=== PATIENT | female | born 1965 | race Caucasian/White ===

== ENCOUNTER 2020-04-14 06:53 | Observation (INO) | payer OTHER ==
[~2020-04-14] VITALS: Ht 162.6 cm; Wt 49.0 kg
[~2020-04-14 06:53] MED LIST: AUGMENTIN 500-1 EACH PO; CELEXA; CELEXA 20 MG TA20 MG PO; TIROSINT100 MCG; TIROSINT100 MCG PO; VICODIN 5-5001 EACH PO; XANAX 0.5 MG0.5 M1 PO; XANAX 0.5 MG0.5 MG PO
[2020-04-14 06:57] VITALS: BP 122/83
[2020-04-14 07:19] LABS: ABSOLUTE EOSINOPHILS 0.1 thou/uL (0.0-0.7); ABSOLUTE MONOCYTES 0.5 thou/uL (0.0-1.2); BASOPHILS 0.2 %; EOSINOPHILS 2.4 %; HEMATOCRIT 40.8 % (37.0-47.0); HEMOGLOBIN 14.2 gm/dL (12.0-15.0); LYMPHOCYTES 43.6 %; MCH 33.8 pg (26.0-34.0); MCHC 34.7 g/dL (28.0-37.0); MCV 97.2 fL (80.0-100.0); MONOCYTES 10.1 %; MPV 7.2 fl. (7.2-11.1); NUCLEATED RBCS 0 /100WBC; PLATELET COUNT* 328 thou/uL (150-400); POLYS 43.7 %; RDW-CV 13.9 % (10.5-14.5); WBC 4.7 thou/uL (4.0-11.0)
[2020-04-14 07:22] LABS: CALCIUM 8.9 mg/dL (8.5-10.1); CREATININE 0.7 mg/dL (0.6-1.3); POTASSIUM 3.3 mmol/L (3.5-5.1)
[2020-04-14 07:32] LABS: ALBUMIN 4.1 g/dL (3.4-5.0); TOTAL BILIRUBIN 0.4 mg/dL (<0.1-1.0); TOTAL PROTEIN 7.4 g/dL (6.4-8.2)
--- NOTE | 2020-04-14 07:57 | NUR ---
PT.'S EMPLOYER NOTIFIED OF PT NOT BEING ABLE TO COME INTO WORK PER PT REQUEST.
[2020-04-14 09:48] VITALS: BP 135/87
[2020-04-14 10:42] LABS: CHOLESTEROL 228 mg/dL (<200); HDL CHOLESTEROL 70 mg/dL (>40); LDL CHOLESTEROL 129 mg/dL (<100); SERUM ASSESSMENT Clear; TC:HDL 3.3 Ratio (Not establshd); TRIGLYCERIDE 147 mg/dL (<150); VLDL 29 mg/dL (<40)
[2020-04-14] MEDS ORDERED: LEVO-T100 MCG PO (11:14)
[2020-04-14] MEDS ORDERED: EUTHYROX112 MCG PO (11:16)
[2020-04-14 12:42] VITALS: BP 118/62
--- NOTE | 2020-04-14 13:11 | EKG ---
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 04/14/20 1311 0657 0657 Vincent Pritchard MD, [facility] /EPI
--- NOTE | 2020-04-14 15:33 | 2DMMODE ---
[place] [address] 2 D/M-MODE ECHOCARDIOGRAM Name: GER ALONZO Shelby Room: [address] MJoeyRJoey#: [id number] Admission: 04/14/20 Attend Phys: Gm Maria Discharge: Date of : 67 Date of Service: 04/14/20 1533 Report #: [id number] THIS REPORT FOR: cc: Long Richardson James E DO Holkins,Vincent Sky MD [facility] ~ APPROVED REPORT Study performed: 04/14/2020 14:49:58 EXAM: Comprehensive 2D, Doppler, and color-flow Echocardiogram Patient Location: In-Patient Room #: [facility] Status: routine BSA: 1.51 HR: 89 bpm BP: 118/62 mmHg Rhythm: NSR Other Information Study Quality: Good Indications elevated bnp 2D Dimensions IVSd: 10.15 (7-11mm) LVOT Diam: 21.85 (18-24mm) LVDd: 50.91 mm PWd: 10.06 (7-11mm) Ascending Ao: 28.66 (22-36mm) LVDs: 43.60 (25-40mm) Aortic Root: 33.44 mm Volumes Left Atrial Volume (Systole) LA ESV Index: 26.60 mL/m2 Aortic Valve AoV Peak Cesario.: 0.92 m/s AO Peak Gr.: 3.36 mmHg LVOT Max P.41 mmHg AO Mean Gr.: 2.06 mmHg LVOT Mean P.73 mmHg LVOT Max V: 0.59 m/s AO V2 VTI: 17.04 cm LVOT Mean V: 0.41 m/s ASHLEY (VTI): 2.30 cm2 LVOT V1 VTI: 10.45 [place] [address] 2 D/M-MODE ECHOCARDIOGRAM Name: GER ALONZO Room: [address] AsyaRJoey#: [id number] Admission: 04/14/20 Attend Phys: Gm Maria Discharge: Date of : 67 Date of Service: 04/14/20 1533 Report #: [id number] Mitral Valve E/A Ratio: 0.67 MV Decel. Time: 308.72 ms MV E Max Cesario.: 0.46 m/s MV PHT: 89.53 ms MVA (PHT): 2.46 cm2 TDI E/Lateral E': 9.20 E/Medial E': 7.67 Medial E' Cesario.: 0.06 m/s Lateral E' Cesario.: 0.05 m/s Pulmonary Valve PV Peak Cesario.: 0.67 m/s PV Peak Gr.: 1.77 mmHg Left Ventricle The left ventricle is normal size. There is moderate global hypokinesis of left ventricular wall motion. There is normal left ventricular wall thickness. Left ventricular systolic function is moderately decreased. LVEF is 35-40%. Grade I - abnormal relaxation pattern. Right Ventricle The right ventricle is normal size. The right ventricular systolic function is normal. Atria Left atrium is mildly dilated. The right atrium size is normal. Aortic Valve The aortic valve is normal in structure. No aortic regurgitation is present. There is no aortic valvular stenosis. Mitral Valve The mitral valve is normal in structure. Trace mitral regurgitation. No evidence of mitral valve stenosis. Tricuspid Valve The tricuspid valve is normal in structure. Unable to assess PA pressure. Trace tricuspid regurgitation. Pulmonic Valve The pulmonary valve is normal in structure. There is no pulmon[place] [address] 2 D/M-MODE ECHOCARDIOGRAM Name: GER ALONZO Room: [address]#: [id number] Admission: 04/14/20 Attend Phys: Gm Maria Discharge: Date of : 67 Date of Service: 04/14/20 1533 Report #: [id number] Great Vessels The aortic root is normal in size. IVC is normal in size and collapses >50% with inspiration. Pericardium There is no pericardial effusion. <Conclusion> The left ventricle is normal size. There is normal left ventricular wall thickness. Left ventricular systolic function is moderately decreased. LVEF is 35-40%. Grade I - abnormal relaxation pattern. The right ventricle is normal size. Left atrium is mildly dilated. The right atrium size is normal. The aortic valve is normal in structure. The mitral valve is normal in structure. Trace mitral regurgitation. The tricuspid valve is normal in structure. IVC is normal in size and collapses >50% with inspiration. There is moderate global hypokinesis of left ventricular wall motion. There is no pericardial effusion. <ELECTRONICALLY SIGNED> By: Vincent Pritchard MD, [facility] 04/14/20 1533 1533 1533 Vincent Pritchard MD, FACC /INF
--- NOTE | 2020-04-14 16:00 | NUR ---
PT UP FROM ED AROUND 1030 ALERT AND ORIENTED BUT VERY ANXIOUS HRR ON MONITOR NSR IN 80S MEDS PUT IN COMPUTER NPO JUST GOT BACK FROM STRESS TEST PT RECEIVED XANX AROUND 1230 TODAY NO PAIN AT THIS TIME REC'D NITRO IN ED WITH RELIEF RAC 20G SALINE LOCKED UP AD PARVIN NO COMPLAINTS AT THIS TIME JUST WANTS TO EAT
[2020-04-14 16:39] VITALS: BP 113/76
--- NOTE | 2020-04-14 17:09 | CARDNUC ---
[place] [address] CARDIAC NUCLEAR IMAGING REPORT Name: GER ALONZO Room: [address] M.R.#: [id number] Admission: 04/14/20 Attend Phys: Gm Maria Discharge: Date of : 67 Date of Service: 04/14/20 1708 Report #: [id number] THIS REPORT FOR: cc: Long Richardson James E DO Liston, Michael J. MD [facility] ~ APPROVED REPORT Study performed: 04/14/2020 14:51:51 Exam: Nuclear Stress Test Indication: Chest pain Patient Location: In-Patient Room #: [facility] Stress Tech: Elisha Montaño Stress Nurse: Jeimy Grover RN Ht: 5 ft 4 in Wt: 108 lbs BSA: 1.51 m2 BMI: 18.53 Medical History Medical History: Hyperlipidemia, Smoking Medications: asa-325 Allergies: No known drug allergies Cardiac Risk Factors: Age, Current Smoker, Hyperlipidemia Exercise History: Indeterminate Stress Test Details Stress Test: Exercise stress testing was performed using a Chandler protocol. HR Resting HR: 72 bpm Max Heart Rate (APMHR): 167 bpm Max HR Achieved: 150 bpm Target HR (85% APMHR): 141 bpm % of APMHR: 89 Recovery HR: 98 bpm HR response to stress: Normal HR response to stress BP Resting BP: 99/75 mmHg Max BP: 192/98 mmHg BP response to stress: Normal blood pressure response to stress. ECG [address] [address] CARDIAC NUCLEAR IMAGING REPORT Name: GER ALONZO Shelby Room: [address] Carol Denise#: [id number] Admission: 04/14/20 Attend Phys: Gm Maria Discharge: Date of : 67 Date of Service: 04/14/20 1708 Report #: [id number] Resting ECG: Sinus Rhythm Stress ECG: Sinus Tachycardia ST Change: None Arrhythmia: None Recovery ECG: Sinus Rhythm Recovery ST Change: None Recovery Arrhythmia: None Clinical Reason for Termination: Maximal effort, ST changes, Chest pain/Anginal equivalent Exercise duration: 7 min 01 sec Exercise capacity: 8.64 METs Overall Exercise Capacity for Age: Normal Functional Aerobic Impairment 90% The patient had persistent chest pain throughout the stress test. Nurse Comments pt co increase of pain to 6/10 during test. resolved with rest Stress ECG Conclusion The baseline twelve-lead EKG shows sinus rhythm with some nonspecific T wave inversion without significant ST segment abnormality. EKGs obtained during and post exercise show sinus rhythm and sinus tachycardia with no significant ST segment changes when compared to baseline. There were no stress-induced arrhythmias. NM EXAM: Myocardial Perfusion REST/STRESS Resting Data Rest SPECT myocardial perfusion imaging was performed in supine position 30 minutes following the intravenous injection of 10.3 mCi of Tc-99m Sestamibi. Time of rest injection: 13:30 The images were gated to evaluate regional wall motion and calculate left ventricular ejection fraction. Administration Route: IV Administration Site: Right Arm Exercise Stress At peak stress, the patient was injected intravenously with 36.0mCi of Tc-99m Sestamibi. Time of stress injection: 14:50 Administration Route: [place] [address] CARDIAC NUCLEAR IMAGING REPORT Name: CHERIGER Ryan Room: [address] M.R.#: [id number] Admission: 04/14/20 Attend Phys: Gm Maria Discharge: Date of : 67 Date of Service: 04/14/20 1708 Report #: [id number] Administration Site: Right Arm Heart Rate at time of stress injection: 143 bpm. Patient continued to exercise for 1 minute(s). Gated Stress SPECT was performed 40 minutes after stress injection. The images were gated to evaluate regional wall motion and calculate left ventricular ejection fraction. Prone imaging was performed. Study Quality Study: Good Artifact: No artifact Study Data At rest, the left ventricular ejection fraction was 38%.. Post stress, the left ventricular ejection was 34%.. TID = 1.06. Perfusion Perfusion images obtained at rest and post exercise stress showed no significant defect to suggest infarct or ischemia. Wall Motion There is global hypokinesis without obvious focal wall motion abnormality. Nuclear Conclusion ECG Findings: negative for ischemia Clinical Findings: equivocal Nuclear Findings: negative for ischemia Exercise Capacity: normal Left Ventricular Function: abnormal Perfusion study showed no defect to suggest infarct or ischemia. On gated studies there is global hypokinesis of the left ventricle without obvious focal wall motion abnormality. LV systolic dysfunction appears to be at least moderately decreased. This is not a high risk study with regards to ischemic coronary disease. <Conclusion> The baseline twelve-lead EKG shows sinus rhythm with some nonspecific T wave inversion without significant ST segment abnormality. EKGs obtained during and post exercise show sinus [place] [address] CARDIAC NUCLEAR IMAGING REPORT Name: GER ALONZO Room: [address]#: [id number] Admission: 04/14/20 Attend Phys: Gm Maria Discharge: Date of : 67 Date of Service: 04/14/201707 Report #: [id number] tachycardia with no significant ST segment changes when compared to baseline. There were no stress-induced arrhythmias. <ELECTRONICALLY SIGNED> By: Horace Kunz MD, [facility] 04/14/20 1708 07 1708 Horace Kunz MD, FACC /INF
[2020-04-14 19:20] VITALS: BP 97/63
[2020-04-14 22:11] LABS: AMP/METHAMP POSITIVE (Negative); BARBITURATES Negative (Negative); BENZODIAZEPINES POSITIVE (Negative); COCAINE Negative (Negative); METHADONE Negative (Negative); OPIATES POSITIVE (Negative); PCP Negative (Negative); THC POSITIVE (Negative)
[2020-04-15] VITALS: BP 105/60; BP 114/72
[2020-04-15 04:00] VITALS: BP 108/59
[2020-04-15 05:18] LABS: ABSOLUTE BASOPHILS 0.1 thou/uL (0.0-0.2); ABSOLUTE EOSINOPHILS 0.1 thou/uL (0.0-0.7); ABSOLUTE LYMPHOCYTES 1.9 thou/uL (0.8-5.3); ABSOLUTE MONOCYTES 0.5 thou/uL (0.0-1.2); ABSOLUTE NEUTROPHILS 2.8 thou/uL (1.6-8.1); BASOPHILS 1.3 %; EOSINOPHILS 2.2 %; HEMOGLOBIN 13.2 gm/dL (12.0-15.0); LYMPHOCYTES 34.7 %; MCH 34.1 pg (26.0-34.0); MCHC 34.7 g/dL (28.0-37.0); MCV 98.1 fL (80.0-100.0); MONOCYTES 9.3 %; MPV 7.8 fl. (7.2-11.1); NUCLEATED RBCS 0 /100WBC; PLATELET COUNT* 293 thou/uL (150-400); POLYS 52.5 %; RBC 3.88 mil/uL (4.20-5.00); RDW-CV 13.8 % (10.5-14.5); WBC 5.4 thou/uL (4.0-11.0)
[2020-04-15 05:19] LABS: CALCIUM 8.7 mg/dL (8.5-10.1); CREATININE 0.7 mg/dL (0.6-1.3)
[2020-04-15 05:36] LABS: POTASSIUM 4.3 mmol/L (3.5-5.1)
--- NOTE | 2020-04-15 06:24 | NUR ---
PT AWAKE MOST OF SHIFT. ASSESSMENT DOCUMENTED. MEDS GIVEN PER E-MAR. IV PATENT. ANXIETY AND SLEEP MEDS GIVEN PER E-MAR. PT PACING IN ROOM THORUGH NIGHT. UA OBTAINED. WILL CONTINUE WITH PLAN OF CARE.
[2020-04-15 09:15] VITALS: BP 94/62
[2020-04-15] MEDS ORDERED: LASIX 20 MG TAB20 MG PO (09:53)
[2020-04-15] MEDS ORDERED: ASPIRIN325 PO (09:53)
[2020-04-15] MEDS ORDERED: COZAAR 50 MG TA50 M1 PO (09:53)
[2020-04-15] MEDS ORDERED: NITROGLYCERIN0.4 MG SUBLING (09:53)
[2020-04-15] MEDS ORDERED: CARVEDILOL3.125 MG PO (09:53)
[2020-04-15] MEDS ORDERED: NICOTINE TRANSD14 M1 TRANSDERM (10:36)
[2020-04-15 10:45] VITALS: BP 94/62
--- NOTE | 2020-04-15 11:42 | NUR ---
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
--- NOTE | 2020-04-17 11:03 | EKG ---
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 : 1965 Requested By: Gm Maria Order Number: [id number] MD: Vincent Pritchard Measurements Intervals [place] Rate: 63 P: 68 WI: 159 QRS: 10 QRSD: 99 T: 32 QT: 498 QTc: 510 Interpretive Statements Sinus rhythm Probable left atrial enlargement Nonspecific T abnormalities, anterior leads Borderline prolonged QT interval Compared to ECG 04/14/2020 06:57:55 Possible ischemia no longer present T-wave abnormality still present Electronically Signed On 04-17-2020 11:02:54 CDT by Vincent Pritchard [email or web address] <ELECTRONICALLY SIGNED> By: Vincent Pritchard MD, FAC 04/17/20 1102 0414 0414 Vincent Pritchard MD, FAC /EPI
== END 2020-04-15 11:45 | disposition home or self-care (01) ==
LOC: M.ERS 06:53 → M.TBA-ER 08:03 → M.2W 08:03
PROVIDERS: Emergency Medicine Emergency Medical Services; Registered Nurse; ADMIT Internal Medicine; ATTEND Internal Medicine
DX: I20.0 Unstable angina (principal); E03.9 Hypothyroidism, unspecified; F41.9 Anxiety disorder, unspecified; E05.00 Thyrotoxicosis with diffuse goiter without thyrotoxic crisis or storm; F19.10 Other psychoactive substance abuse, uncomplicated; I11.0 Hypertensive heart disease with heart failure; I50.9 Heart failure, unspecified; E87.6 Hypokalemia; F17.200 Nicotine dependence, unspecified, uncomplicated; J44.9 Chronic obstructive pulmonary disease, unspecified; F17.210 Nicotine dependence, cigarettes, uncomplicated

== ENCOUNTER 2020-04-22 14:16 | Emergency (ER) | payer OTHER ==
[~2020-04-22] VITALS: Ht 170.2 cm; Wt 49.0 kg
[~2020-04-22 14:16] MED LIST changes: +ASPIRIN325 PO; +CARVEDILOL3.125 MG PO; +COZAAR 50 MG TA50 M1 PO; +EUTHYROX112 MCG PO; +LASIX 20 MG TAB20 MG PO; +LEVO-T100 MCG PO; +NICOTINE TRANSD14 M1 TRANSDERM; +NITROGLYCERIN0.4 MG SUBLING
[2020-04-22 15:27] LABS: URINE BILIRUBIN NEGATIVE (Negative); URINE BLOOD NEGATIVE (Negative); URINE CLARITY CLEAR; URINE COLOR YELLOW; URINE GLUCOSE-RANDOM NEGATIVE (Negative); URINE KETONES NEGATIVE (Negative); URINE LEUKOCYTES-REFLEX NEGATIVE (Negative); URINE NITRITE-REFLEX NEGATIVE (Negative); URINE PROTEIN NEGATIVE (Negative); URINE UROBILINOGEN 0.2 E.U./dl (0.2-1.0)
[2020-04-22 15:33] LABS: AMP/METHAMP Negative (Negative); BARBITURATES Negative (Negative); BENZODIAZEPINES POSITIVE (Negative); COCAINE Negative (Negative); METHADONE Negative (Negative); OPIATES Negative (Negative); PCP Negative (Negative); THC POSITIVE (Negative)
[2020-04-22 15:42] LABS: ABSOLUTE BASOPHILS 0.1 thou/uL (0.0-0.2); ABSOLUTE EOSINOPHILS 0.1 thou/uL (0.0-0.7); ABSOLUTE LYMPHOCYTES 1.7 thou/uL (0.8-5.3); ABSOLUTE MONOCYTES 0.6 thou/uL (0.0-1.2); ABSOLUTE NEUTROPHILS 2.8 thou/uL (1.6-8.1); BASOPHILS 1.5 %; EOSINOPHILS 1.8 %; HEMATOCRIT 38.7 % (37.0-47.0); HEMOGLOBIN 13.4 gm/dL (12.0-15.0); LYMPHOCYTES 32.9 %; MCH 33.3 pg (26.0-34.0); MCHC 34.6 g/dL (28.0-37.0); MCV 96.3 fL (80.0-100.0); MPV 7.4 fl. (7.2-11.1); NUCLEATED RBCS 0 /100WBC; PLATELET COUNT* 310 thou/uL (150-400); POLYS 52.8 %; RBC 4.02 mil/uL (4.20-5.00); RDW-CV 13.7 % (10.5-14.5); WBC 5.2 thou/uL (4.0-11.0)
[2020-04-22 15:52] LABS: INR 1.1; PROTIME 10.9 Seconds (9.20-11.50)
[2020-04-22 15:53] LABS: CALCIUM 8.4 mg/dL (8.5-10.1); CREATININE 0.8 mg/dL (0.6-1.3); POTASSIUM 3.7 mmol/L (3.5-5.1)
[2020-04-22 16:03] LABS: ALBUMIN 3.8 g/dL (3.4-5.0); TOTAL BILIRUBIN 0.2 mg/dL (<0.1-1.0); TOTAL PROTEIN 6.9 g/dL (6.4-8.2)
[2020-04-22] MEDS ORDERED: PROAIR HFA8.5 GM INH (17:53)
[2020-04-22] MEDS ORDERED: MEDROLDOSEPACK PO (17:53)
[2020-04-22 18:01] VITALS: BP 91/56
--- NOTE | 2020-04-23 12:54 | EKG ---
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[facility] : 1965 Requested By: Lilia Law Order Number: [id number] MD: Horace Kunz Measurements Intervals [place] Rate: 84 P: 73 ID: 144 QRS: 22 QRSD: 92 T: 99 QT: 471 QTc: 557 Interpretive Statements Sinus rhythm Multiple ventricular premature complexes Abnrm T, consider ischemia, anterolateral lds Prolonged QT interval Baseline wander in lead(s) II,III,aVF Compared to ECG 04/15/2020 04:14:39 Ventricular premature complex(es) now present Possible ischemia now present T-wave abnormality no longer present Electronically Signed On 04-23-2020 12:54:19 CDT by Horace Kunz [email or web address] <ELECTRONICALLY SIGNED> By: Horace Kunz MD, FAC 04/23/20 1254 1420 1420 Horace Kunz MD, [facility] /EPI
== END 2020-04-22 18:02 | disposition home or self-care (01) ==
LOC: M.ERS 14:16
PROVIDERS: Personal Emergency Response Attendant
DX: I50.9 Heart failure, unspecified (principal); R06.00 Dyspnea, unspecified; E03.9 Hypothyroidism, unspecified; F41.9 Anxiety disorder, unspecified

== ENCOUNTER 2020-04-29 11:56 | Emergency (ER) | payer OTHER ==
[~2020-04-29] VITALS: Ht 160 cm; Wt 46.7 kg
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
[~2020-04-29 11:56] MED LIST changes: +MEDROLDOSEPACK PO; +PROAIR HFA8.5 GM INH
[2020-04-29 12:40] LABS: ABSOLUTE BASOPHILS 0.1 thou/uL (0.0-0.2); ABSOLUTE EOSINOPHILS 0.1 thou/uL (0.0-0.7); ABSOLUTE LYMPHOCYTES 1.3 thou/uL (0.8-5.3); ABSOLUTE MONOCYTES 0.4 thou/uL (0.0-1.2); ABSOLUTE NEUTROPHILS 2.9 thou/uL (1.6-8.1); BASOPHILS 1.2 %; EOSINOPHILS 1.9 %; HEMATOCRIT 38.3 % (37.0-47.0); HEMOGLOBIN 13.5 gm/dL (12.0-15.0); LYMPHOCYTES 27.3 %; MCH 33.7 pg (26.0-34.0); MCHC 35.2 g/dL (28.0-37.0); MCV 95.9 fL (80.0-100.0); MONOCYTES 8.8 %; MPV 7.4 fl. (7.2-11.1); NUCLEATED RBCS 0 /100WBC; PLATELET COUNT* 286 thou/uL (150-400); POLYS 60.8 %; RDW-CV 13.5 % (10.5-14.5); WBC 4.8 thou/uL (4.0-11.0)
[2020-04-29 12:52] LABS: CALCIUM 8.4 mg/dL (8.5-10.1); CREATININE 0.6 mg/dL (0.6-1.3); POTASSIUM 3.3 mmol/L (3.5-5.1)
[2020-04-29 13:02] LABS: ALBUMIN 3.5 g/dL (3.4-5.0); MAGNESIUM 1.9 mg/dL (1.8-2.4); TOTAL BILIRUBIN 0.3 mg/dL (<0.1-1.0); TOTAL PROTEIN 6.5 g/dL (6.4-8.2)
[2020-04-29] MEDS ORDERED: NORCO 5-325 TA1 EAC2 PO (13:23)
[2020-04-29] MEDS ORDERED: XANAX 0.5 MG0.5 M1 PO (13:40)
[2020-04-29 13:42] VITALS: BP 97/59
--- NOTE | 2020-04-30 14:12 | EKG ---
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 : 1965 Requested By: Dung Munoz Order Number: [id number] MD: Bayron Garcia Measurements Intervals [place] Rate: 55 P: 41 [place]: 145 QRS: 11 QRSD: 102 T: 51 QT: 538 QTc: 515 Interpretive Statements Sinus bradycardia Abnormal T, consider ischemia, anterior leads Prolonged QT interval Baseline wander in lead(s) V5 Compared to ECG 04/22/2020 14:20:48 Ventricular premature complex(es) no longer present Possible ischemia still present Electronically Signed On 04-30-2020 14:12:00 CDT by Bayron Garcia [email or web address] <ELECTRONICALLY SIGNED> By: Bayron Garcia MD, [facility] 04/30/20 1412 1204 1204 Bayron Garcia MD, [facility] /EPI
== END 2020-04-29 13:42 | disposition home or self-care (01) ==
LOC: M.ERS 11:56
PROVIDERS: Emergency Medicine Emergency Medical Services
DX: R07.89 Other chest pain (principal); E03.9 Hypothyroidism, unspecified; F41.9 Anxiety disorder, unspecified

== ENCOUNTER → 2020-05-03 | Outpatient (CLI) | payer OTHER ==
[~2020-05-03] VITALS: Ht 170.2 cm; Wt 52.6 kg
[2020-05-03] VITALS (7 sets, daily range): BP systolic 104–130; BP diastolic 63–82
[~2020-05-03] MED LIST changes: +NORCO 5-325 TA1 EAC2 PO
[2020-05-03 09:41] LABS: HEMATOCRIT 38.5 % (37.0-47.0); HEMOGLOBIN 13.5 gm/dL (12.0-15.0); MCH 33.9 pg (26.0-34.0); MCV 96.9 fL (80.0-100.0); RBC 3.98 mil/uL (4.20-5.00); RDW-CV 13.9 % (10.5-14.5); WBC 6.5 thou/uL (4.0-11.0)
[2020-05-03 09:51] LABS: APTT 26.8 Seconds (25.0-31.3); INR 1.1; PROTIME 11.5 Seconds (9.20-11.50)
[2020-05-03 09:58] LABS: ANION GAP 5 mmol/L (7-16); BUN 15 mg/dL (7-18); CALCIUM 8.9 mg/dL (8.5-10.1); CHLORIDE 100 mmol/L (98-107); CO2 32 mmol/L (21-32); CREATININE 0.6 mg/dL (0.6-1.3); GLUCOSE 86 mg/dL (70-99); POTASSIUM 4.7 mmol/L (3.5-5.1); SODIUM 137 mmol/L (136-145)
[2020-05-03 10:02] LABS: ALBUMIN 3.5 g/dL (3.4-5.0); ALKALINE PHOSPHATASE 79 U/L (46-116); CHOLESTEROL 189 mg/dL (<200); HDL CHOLESTEROL 54 mg/dL (>40); LDL CHOLESTEROL 104 mg/dL (<100); SGOT 31 U/L (15-37); SGPT 13 U/L (30-65); TC:HDL 3.5 Ratio (Not establshd); TOTAL BILIRUBIN 0.2 mg/dL (<0.1-1.0); TOTAL PROTEIN 6.7 g/dL (6.4-8.2); TRIGLYCERIDE 156 mg/dL (<150); VLDL 31 mg/dL (<40)
[2020-05-03 10:04] LABS: SERUM ASSESSMENT Clear
--- NOTE | 2020-05-03 10:30 | EKG ---
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: : 1965 Requested By: Bayron Garcia Order Number: [id number] Reading MD: Bayron Garcia Measurements Intervals [place] Rate: 67 P: 75 [place]: 155 QRS: 22 QRSD: 102 T: 50 QT: 478 QTc: 505 Interpretive Statements Sinus rhythm Nonspecific T abnormalities, anterior leads Borderline prolonged QT interval Compared to ECG 04/29/2020 12:04:07 Sinus bradycardia no longer present T-wave abnormality still present Electronically Signed On 05-03-2020 10:30:33 CDT by Bayron Garcia [email or web address] <ELECTRONICALLY SIGNED> By: Bayron Garcia MD, FAC 05/03/20 1030 1008 1008 Bayron Garcia MD, [facility] /EPI
--- NOTE | 2020-05-03 18:01 | CARD ---
[address] [address] CARDIAC CATH REPORT Name: GER ALONZO Shelby Room: [facility]#: [id number] Admission: 05/03/20 Attend Phys: Bayron Garcia MD, F Discharge: Date of : 67 Report #: [id number] THIS REPORT FOR: //name// cc: Barby Hernandez Angela Jo RNP ~ APPROVED REPORT Study performed: 05/03/2020 08:51:13 Patient Details Patient Status: Out-Patient Room #: The patient is a 55 year-old female Event Personnel Bayron Garcia Senior Treasury Analyst, Edwardo Salmeron RN RN, Long Bo Scrub, Luis Bo Jessie RTR Monitor Procedures Performed Art Access - R radial artery Left Heart Cath w/or w/o Coronaries Hemostasis with Hemoband Indication Cardiomyopathy, Chest pain Risk Factors Hypercholesterolemia, Tobacco History () Admission/Lab Medications/Medications given during procedure Heparin Unfract., Midazolam (Versed) IV 2 mg, Fentanyl IV 25 mcg, Oxygen Nasal cannula 2 l per min, 0.9% Sodium Chloride IV 75 ml per hr, Lidocaine Subcut 5 ml, Midazolam (Versed) IV 1 mg, Nitroglycerin IA 400 mcg, Verapamil IA 5 mg, Heparin IV 2600 units, Midazolam (Versed) IV 0.5 mg Procedure Narrative The patient was brought electively to the Cardiac Catheterization Laboratory and was prepped and draped in a sterile manner. The right wrist was infiltrated with 2% Lidocaine subcutaneous anesthesia. A Slender Glidesheath sheath was inserted into the right radial artery. Coronary angiography was performed using coronary diagnostic catheters. The right coronary system was accessed and visualized with a Diagnostic 6 Fr JR 4 catheter. The left coronary system was accessed and visualized with a Diagnostic 6 Fr JL 4 catheter. The left ventricle was accessed and visualized with a Diagnostic 6 Fr Pigtail catheter. Left ventricular/Aortic [place] [address] CARDIAC CATH REPORT Name: GER ALONZO Room: [facility]#: [id number] Admission: 05/03/20 Attend Phys: Bayron Garcia MD, F Discharge: Date of : 67 Report #: [id number] catheter pullback. Left ventriculogram was performed in CARTER projection. Closure device was deployed with a 6 Fr Vasc-Band Reg 24cm. The patient tolerated the procedure well and there were no complications associated with the procedure. There was no hematoma. Intraoperative Conscious Sedation Sedation start time: 10:38 Case end Time: 10:57 Fentanyl 50 mcg Versed 3.5 mg Fluoro Time: 2.3 minutes Dose: DAP 48633 cGycm2 318 mGy Contrast Type and Amount: Omnipaque 90 ml [place] Artery Percent Stenosis Left Main: 0 % Prox LAD: 0 % Mid/Distal LAD: 0 % Circumflex: 0 % RCA: 0 % Ramus: % Left Ventriculography The left ventricular ejection fraction is estimated to be 25-30%. There is 1+ mitral insufficiency. global hypokinesis noted of the left venricle Hemodynamics The aortic pressure is 101/64 mmHg with a mean of 79 mmHg. The left ventricular pressure is 107/10 mmHg with a mean of mmHg. The left ventricular end diastolic pressure is 10 mmHg. There was no gradient across the aortic valve upon pullback. Pullback from the left ventricle to the aorta revealed no gradient across the aortic valve. Conclusion 1. nonischemic cardiomyopathy 2. LVEF 25-30% Recommendations consider ICD placement <ELECTRONICALLY SIGNED> By: Bayron Garcia MD, FACC 05/03/20 1800 1800 1800Daalexis Garcia MD, FACC /INF
== END ==
LOC: M.CL 08:43
PROVIDERS: ATTEND Internal Medicine Cardiovascular Disease
DX: I42.9 Cardiomyopathy, unspecified (principal); R07.9 Chest pain, unspecified; E03.9 Hypothyroidism, unspecified; F41.9 Anxiety disorder, unspecified; I11.0 Hypertensive heart disease with heart failure; I50.9 Heart failure, unspecified; J44.9 Chronic obstructive pulmonary disease, unspecified; F17.210 Nicotine dependence, cigarettes, uncomplicated; Z79.82 Long term (current) use of aspirin; Z79.899 Other long term (current) drug therapy; Z98.890 Other specified postprocedural states

== ENCOUNTER → 2020-08-31 | Outpatient (CLI) | payer OTHER ==
[2020-08-31 12:51] LABS: CALCIUM 8.5 mg/dL (8.5-10.1); CREATININE 0.6 mg/dL (0.6-1.3); POTASSIUM 3.5 mmol/L (3.5-5.1)
== END ==
LOC: M.LAB 12:10
PROVIDERS: ATTEND Internal Medicine Cardiovascular Disease
DX: I42.0 Dilated cardiomyopathy (principal)

== ENCOUNTER → 2020-09-27 | Outpatient (CLI) | payer OTHER | LOC: M.CT 10:36 | PROVIDERS: ATTEND Nurse Practitioner Family | DX: R10.10 Upper abdominal pain, unspecified (principal) ==

== ENCOUNTER 2020-10-01 06:36 | Emergency (ER) | payer OTHER ==
[~2020-10-01] VITALS: Ht 170.2 cm; Wt 52.6 kg
[2020-10-01 07:53] LABS: ABSOLUTE BASOPHILS 0.1 thou/uL (0.0-0.2); ABSOLUTE EOSINOPHILS 0.1 thou/uL (0.0-0.7); ABSOLUTE LYMPHOCYTES 2.1 thou/uL (0.8-5.3); ABSOLUTE MONOCYTES 0.7 thou/uL (0.0-1.2); ABSOLUTE NEUTROPHILS 2.4 thou/uL (1.6-8.1); BASOPHILS 2.2 %; EOSINOPHILS 2.7 %; HEMATOCRIT 39.3 % (37.0-47.0); HEMOGLOBIN 13.5 gm/dL (12.0-15.0); LYMPHOCYTES 37.7 %; MCH 34.3 pg (26.0-34.0); MCHC 34.3 g/dL (28.0-37.0); MCV 100.1 fL (80.0-100.0); MONOCYTES 13.3 %; MPV 7.4 fl. (7.2-11.1); NUCLEATED RBCS 0 /100WBC; PLATELET COUNT* 361 thou/uL (150-400); POLYS 44.1 %; RBC 3.93 mil/uL (4.20-5.00); WBC 5.5 thou/uL (4.0-11.0)
[2020-10-01 08:00] LABS: CALCIUM 8.2 mg/dL (8.5-10.1); CREATININE 0.9 mg/dL (0.6-1.3); POTASSIUM 4.6 mmol/L (3.5-5.1)
[2020-10-01 08:04] LABS: ALBUMIN 3.1 g/dL (3.4-5.0); TOTAL BILIRUBIN 0.1 mg/dL (<0.1-1.0)
[2020-10-01 10:33] VITALS: BP 1112/73
--- NOTE | 2020-10-02 10:08 | EKG ---
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 : 1965 Requested By: Caesar Hay Order Number: [id number] MD: Vincent Pritchard Measurements Intervals [place] Rate: 72 P: 72 NV: 154 QRS: 39 QRSD: 145 T: 231 QT: 469 QTc: 514 Interpretive Statements Sinus rhythm Nonspecific intraventricular conduction delay Anteroseptal infarct, age indeterminate possible Repol abnrm, prob ischemia, anterolateral lds Compared to ECG 05/03/2020 10:08:00 Intraventricular conduction delay now present Myocardial infarct finding now suggested Early repolarization now present Possible ischemia now present Electronically Signed On 10-02-2020 10:07:49 ON AIR PERSONALITY by Vincent Pritchard [email or web address] <ELECTRONICALLY SIGNED> By: Vincent Pritchard MD, FACC 10/02/20 1007 0744 Vincent Pritchard MD, [facility] /EPI
== END 2020-10-01 10:34 | disposition home or self-care (01) ==
LOC: M.ERS 06:36
PROVIDERS: Emergency Medicine
DX: R10.84 Generalized abdominal pain (principal); R11.2 Nausea with vomiting, unspecified; J18.9 Pneumonia, unspecified organism; E03.9 Hypothyroidism, unspecified; Z79.899 Other long term (current) drug therapy; Z20.828 Contact with and (suspected) exposure to other viral communicable diseases

== ENCOUNTER → 2020-10-03 | Outpatient (CLI) | payer OTHER ==
--- NOTE | 2020-10-03 12:41 | 2DMMODE ---
[place] [address] 2 D/M-MODE ECHOCARDIOGRAM Name: GER ALONZO Room: [facility]#: [id number] Admission: 10/03/20 Attend Phys: Bayron Garcia MD Discharge: Date of : 67 Date of Service: 10/03/20 1241 Report #: [id number] THIS REPORT FOR: cc: Barby Hernandez Angela Jo RNP Liston, Michael J. MD [facility] ~ APPROVED REPORT Study performed: 10/03/2020 08:59:32 EXAM: Limited 2D Echocardiogram Patient Location: Out-Patient BSA: 1.60 HR: 65 bpm BP: 118/62 mmHg Other Information Study Quality: Good Indications Cardiomyopathy 2D Dimensions IVSd: 10.52 (7-11mm) LVDd: 49.67 mm PWd: 8.12 (7-11mm) LVDs: 40.17 (25-40mm) Aortic Root: 30.15 mm Left Ventricle The left ventricle is normal size. There is global left ventricular hypokinesis. There is normal left ventricular wall thickness. Left ventricular ejection fraction is moderately decreased. LVEF is 35-40%. Aortic Valve The aortic valve is normal in structure. Mitral Valve The mitral valve is normal in structure. Tricuspid Valve The tricuspid valve [place] [address] 2 D/M-MODE ECHOCARDIOGRAM Name: GER ALONZO Room: [facility]#: [id number] Admission: 10/03/20 Attend Phys: Bayron Garcia MD Discharge: Date of : 67 Date of Service: 10/03/20 1241 Report #: [id number] Pericardium There is no pericardial effusion. <Conclusion> The left ventricle is normal size. There is normal left ventricular wall thickness. Left ventricular ejection fraction is moderately decreased. LVEF is 35-40%. There is global left ventricular hypokinesis. <ELECTRONICALLY SIGNED> By: Horace Kunz MD, FACC 10/03/20 124 1241 124 Horace Kunz MD, FACC /INF
== END ==
LOC: M.CRD 09-26 08:00
PROVIDERS: ATTEND Internal Medicine Cardiovascular Disease
DX: I42.0 Dilated cardiomyopathy (principal)

== ENCOUNTER 2020-11-03 11:01 | Emergency (ER) | payer OTHER ==
[~2020-11-03] VITALS: Ht 170.2 cm; Wt 51.3 kg
[2020-11-03 11:27] LABS: ABSOLUTE LYMPHOCYTES 1.6 thou/uL (0.8-5.3); ABSOLUTE MONOCYTES 0.4 thou/uL (0.0-1.2); ABSOLUTE NEUTROPHILS 6.7 thou/uL (1.6-8.1); BASOPHILS 0.2 %; EOSINOPHILS 0.5 %; HEMATOCRIT 39.6 % (37.0-47.0); HEMOGLOBIN 13.3 gm/dL (12.0-15.0); LYMPHOCYTES 18.5 %; MCH 33.9 pg (26.0-34.0); MCHC 33.6 g/dL (28.0-37.0); MCV 100.8 fL (80.0-100.0); MONOCYTES 4.8 %; MPV 7.1 fl. (7.2-11.1); NUCLEATED RBCS 0 /100WBC; PLATELET COUNT* 368 thou/uL (150-400); RBC 3.93 mil/uL (4.20-5.00); RDW-CV 14.1 % (10.5-14.5); WBC 8.8 thou/uL (4.0-11.0)
[2020-11-03 11:44] LABS: CALCIUM 8.1 mg/dL (8.5-10.1); CREATININE 0.8 mg/dL (0.6-1.3); POTASSIUM 3.1 mmol/L (3.5-5.1)
[2020-11-03 11:48] LABS: ALBUMIN 3.5 g/dL (3.4-5.0); TOTAL BILIRUBIN 0.5 mg/dL (<0.1-1.0); TOTAL PROTEIN 6.3 g/dL (6.4-8.2)
[2020-11-03 12:20] LABS: URINE BILIRUBIN NEGATIVE (Negative); URINE BLOOD NEGATIVE (Negative); URINE CLARITY CLEAR; URINE COLOR YELLOW; URINE GLUCOSE-RANDOM NEGATIVE (Negative); URINE KETONES NEGATIVE (Negative); URINE LEUKOCYTES-REFLEX NEGATIVE (Negative); URINE NITRITE-REFLEX NEGATIVE (Negative); URINE PROTEIN NEGATIVE (Negative); URINE SPECIFIC GRAVITY <= 1.005 (1.005-1.030); URINE UROBILINOGEN 0.2 E.U./dl (0.2-1.0)
[2020-11-03 12:27] LABS: AMP/METHAMP Negative (Negative); BARBITURATES Negative (Negative); BENZODIAZEPINES POSITIVE (Negative); COCAINE Negative (Negative); METHADONE Negative (Negative); OPIATES Negative (Negative); PCP Negative (Negative); THC POSITIVE (Negative)
[2020-11-03 14:00] VITALS: BP 141/70
--- NOTE | 2020-11-04 10:33 | EKG ---
[place] [address] ELECTROCARDIOGRAM REPORT Name: GER ALONZO Room: [facility]#: [id number] Admission: 11/03/20 Attend Phys: Discharge: 11/03/20 Date of : 67 Date of Service: 11/03/20 1114 Report #: [id number] THIS REPORT FOR: //name// [facility] ED Test Date: 2020-11-03 Test Time: 11:14:42 Pat Name: GER ALONZO Department: Room: Gender: F Contact Centre Supervisor: [facility] : 1965 Requested By: Gaurav Herring Order Number: [id number] MD: Bayron Garcia Measurements Intervals [place] Rate: 117 P: [place]: QRS: 1 QRSD: 119 T: 102 QT: 366 QTc: 511 Interpretive Statements sinus tachycardia Ventricular premature complex Borderline low voltage, extremity leads nonspecific st segment changes artifact noted Compared to ECG 10/01/2020 07:44:26 Ventricular premature complex(es) now present Possible ischemia no longer present Electronically Signed On 11-04-2020 10:33:46 REPERTOIRE MANAGER by Bayron Garcia [email or web address] <ELECTRONICALLY SIGNED> By: Bayron Garcia MD, FAC 11/04/20 1033 1114 1114 Bayron Garcia MD, [facility] /EPI
--- NOTE | 2020-11-04 10:36 | EKG ---
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 Design Engineer: : 1965 Requested By: Ge Ceballos Order Number: [id number] MD: Bayron Garcia Measurements Intervals [place] Rate: 103 P: 74 [place]: 167 QRS: 0 QRSD: 97 T: 94 QT: 396 QTc: 519 Interpretive Statements Sinus tachycardia nonspecific st segment changes Ventricular trigeminy Borderline low voltage, extremity leads Prolonged QT interval Compared to ECG 11/03/2020 11:14:42 Prolonged QT interval now present Electronically Signed On 11-04-2020 10:36:02 ELECTRICIAN THIRD by Bayron Garcia [email or web address] <ELECTRONICALLY SIGNED> By: Bayron Garcia MD, FAC 11/04/20 1036 1345 1345 Bayron Garcia MD, [facility] /EPI
== END 2020-11-03 14:00 | disposition home or self-care (01) ==
LOC: M.ERS 11:01
PROVIDERS: Physician Assistant
DX: F41.0 Panic disorder [episodic paroxysmal anxiety] (principal); I10 Essential (primary) hypertension; E03.9 Hypothyroidism, unspecified; F17.210 Nicotine dependence, cigarettes, uncomplicated; Z79.899 Other long term (current) drug therapy

== ENCOUNTER 2020-11-25 13:36 | Inpatient (IN) | payer OTHER ==
[2020-11-25] VITALS (17 sets, daily range): BP systolic 75–140; BP diastolic 46–91
[~2020-11-25] VITALS: Ht 170.2 cm; Wt 54.4 kg
[2020-11-25] MEDS ORDERED: ALPRAZOLAM XR0.5 MG PO (13:44)
[2020-11-25] MEDS ORDERED: LEVOTHYROXINE112 MC1 PO (13:44)
[2020-11-25] MEDS ORDERED: COREG6.25 MG PO (13:44)
[2020-11-25] MEDS ORDERED: CITALOPRAM HBR40 MG PO (13:45)
[2020-11-25] MEDS ORDERED: BUDESONIDE EC3 MG PO (13:45)
[2020-11-25] MEDS ORDERED: ENTRESTO 24 MG1 EACH PO (13:45)
[2020-11-25] MEDS ORDERED: BENTYL 10 MG CA10 M1 PO (13:45)
[2020-11-25 14:03] LABS: ABSOLUTE BASOPHILS 0.1 thou/uL (0.0-0.2); ABSOLUTE EOSINOPHILS 0.1 thou/uL (0.0-0.7); ABSOLUTE LYMPHOCYTES 0.9 thou/uL (0.8-5.3); ABSOLUTE MONOCYTES 0.4 thou/uL (0.0-1.2); ABSOLUTE NEUTROPHILS 5.2 thou/uL (1.6-8.1); BASOPHILS 1.2 %; EOSINOPHILS 0.9 %; HEMATOCRIT 31.2 % (37.0-47.0); HEMOGLOBIN 10.7 gm/dL (12.0-15.0); LYMPHOCYTES 14.2 %; MCH 35.1 pg (26.0-34.0); MCHC 34.4 g/dL (28.0-37.0); MONOCYTES 5.9 %; MPV 6.9 fl. (7.2-11.1); NUCLEATED RBCS 0 /100WBC; PLATELET COUNT* 256 thou/uL (150-400); POLYS 77.8 %; RBC 3.06 mil/uL (4.20-5.00); RDW-CV 14.9 % (10.5-14.5); WBC 6.7 thou/uL (4.0-11.0)
[2020-11-25 14:04] LABS: URINE BILIRUBIN NEGATIVE (Negative); URINE BLOOD NEGATIVE (Negative); URINE CLARITY CLEAR; URINE GLUCOSE-RANDOM NEGATIVE (Negative); URINE KETONES NEGATIVE (Negative); URINE LEUKOCYTES-REFLEX NEGATIVE (Negative); URINE NITRITE-REFLEX NEGATIVE (Negative); URINE PROTEIN NEGATIVE (Negative); URINE SPECIFIC GRAVITY <= 1.005 (1.005-1.030); URINE UROBILINOGEN 0.2 E.U./dl (0.2-1.0)
[2020-11-25 14:06] LABS: URINE COLOR PALE YELLOW
[2020-11-25 14:09] LABS: CALCIUM 7.9 mg/dL (8.5-10.1); CREATININE 0.6 mg/dL (0.6-1.3)
[2020-11-25 14:11] LABS: POTASSIUM 2.6 mmol/L (3.5-5.1)
[2020-11-25 14:14] LABS: AMP/METHAMP Negative (Negative); BARBITURATES Negative (Negative); BENZODIAZEPINES Negative (Negative); COCAINE Negative (Negative); METHADONE Negative (Negative); OPIATES Negative (Negative); PCP Negative (Negative); THC POSITIVE (Negative)
[2020-11-25 14:14] LABS: ALBUMIN 2.5 g/dL (3.4-5.0); TOTAL BILIRUBIN 0.4 mg/dL (<0.1-1.0); TOTAL PROTEIN 4.8 g/dL (6.4-8.2)
[2020-11-25 14:17] LABS: ACETAMINOPHEN 2 ug/mL (10-30); ALCOHOL 85 mg/dL (<10); SALICYLATE < 2.8 mg/dL (2.8-20.0)
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
--- NOTE | 2020-11-25 16:49 | NUR ---
AT 6055 DR DURAND CALLED POISON CONTROL POISON CONTROL FAXED INFORMATION TO [facility] FAX
[2020-11-26] VITALS (42 sets, daily range): BP systolic 81–155; BP diastolic 54–102
[2020-11-26 04:32] LABS: HEMATOCRIT 32.8 % (37.0-47.0); HEMOGLOBIN 11.2 gm/dL (12.0-15.0); MCH 35.4 pg (26.0-34.0); MCHC 34.2 g/dL (28.0-37.0); MCV 103.4 fL (80.0-100.0); MPV 7.4 fl. (7.2-11.1); RBC 3.17 mil/uL (4.20-5.00); RDW-CV 14.6 % (10.5-14.5); WBC 6.7 thou/uL (4.0-11.0)
[2020-11-26 04:39] LABS: CALCIUM 8.1 mg/dL (8.5-10.1); CREATININE 0.7 mg/dL (0.6-1.3); POTASSIUM 3.1 mmol/L (3.5-5.1)
--- NOTE | 2020-11-26 11:55 | EKG ---
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: RODRÍGUEZ : 1965 Requested By: Dung Munoz Order Number: [id number] MD: [place] Measurements Intervals [place] Rate: 58 P: 64 PA: 163 QRS: 38 QRSD: 104 T: 33 QT: 554 QTc: 545 Interpretive Statements Sinus rhythm Low voltage, extremity and precordial leads Nonspecific T abnormalities, anterior leads Prolonged QT interval Compared to ECG 11/03/2020 13:45:51 T-wave abnormality now present Sinus tachycardia no longer present Ventricular premature complex(es) no longer present Electronically Signed On 11-26-2020 11:54:[address] by [place] [email or web address] <ELECTRONICALLY SIGNED> By: Major Davis MD, [facility] 11/26/20 1154 1344 1344 Major Davis MD, [facility] /EPI
[2020-11-27 03:05] LABS: GLYCOHEMOGLOBIN (HGB A1C) 5.3 % (4.8-5.6)
[2020-11-27 04:50] VITALS: BP 127/85
--- NOTE | 2020-11-27 08:22 | NUR ---
PT IS ABLE TO COMMUNICATE HER NEEDS TO STAFF EFFECTIVELY. 1:1 SITTER MAINTAINED FOR SUICIDE IDEATION; PLACEMENT TO IN PSYCH PENDING. CURRENT PAIN MEDICATION REGIMEN HAS BEEN ADEQUATE FOR CONTROLLING HER PAIN UP TO THIS TIME. ROOM EVALUATED FOR S/I AT BEGINNING OF SHIFT; CHANGES MADE WHERE NECESSARY TO ASSURE PT SAFETY.
[2020-11-27 09:05] VITALS: BP 136/94
--- NOTE | 2020-11-27 13:10 | NUR ---
Nutrition: Pt admitted SI/OD. Consult received for "other." Wt: 120#. Alb 2.5, prealb 49.4, BG 134. Pt was on telehealth psych call earlier. At second attempt to visit with pt, she was sleeping. 1:1 sitter said pt ate a sandwich this morning. Noticed lunch tray on table was still untouched. Sitter agreed that pt may try an Ensure supplement - RD will order. BMI is 18.8. Disch orders for inpatient psych today. Nutritionally at mild risk at this time.
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
[2020-11-27 13:52] VITALS: BP 153/100
[2020-11-27 16:29] VITALS: BP 116/68
[2020-11-27 17:19] VITALS: BP 116/68
--- NOTE | 2020-11-27 18:10 | NUR ---
Reviewed discharge teaching with patient; verbalized understanding. Plans to stay with friend deven is picking her up from hospital now. IV, CL, and tele monitor dc'd. Dc'd from unit per W/C.
== END 2020-11-27 18:10 | disposition home or self-care (01) | DRG 918 ==
LOC: M.ERS 13:36 → M.2W 14:39 → M.TBA-ER 14:39 → M.ICU 14:39 → M.2W 11-26 18:51
PROVIDERS: Emergency Medicine Emergency Medical Services; Internal Medicine; ADMIT Family Medicine; ATTEND Family Medicine
PROC: 02HV33Z Insertion of Infusion Device into Superior Vena Cava, Percutaneous Approach (ICD-10-PCS; principal; 2020-11-25)
DX: T44.7X2A Poisoning by beta-adrenoreceptor antagonists, intentional self-harm, initial encounter (principal); R57.9 Shock, unspecified; R45.851 Suicidal ideations; E44.0 Moderate protein-calorie malnutrition; Z68.1 Body mass index [BMI] 19.9 or less, adult; E87.6 Hypokalemia; F32.9 Major depressive disorder, single episode, unspecified; E03.9 Hypothyroidism, unspecified; G43.909 Migraine, unspecified, not intractable, without status migrainosus; F41.9 Anxiety disorder, unspecified; I10 Essential (primary) hypertension; Z20.822 Contact with and (suspected) exposure to COVID-19; Z79.899 Other long term (current) drug therapy; Y92.89 Other specified places as the place of occurrence of the external cause; Z23 Encounter for immunization

== ENCOUNTER 2021-01-05 12:26 | Inpatient (IN) | payer OTHER ==
[~2021-01-05] VITALS: Ht 170.2 cm; Wt 58.2 kg
[2021-01-05] VITALS (10 sets, daily range): BP systolic 80–124; BP diastolic 41–83
[~2021-01-05 12:26] MED LIST changes: +ALPRAZOLAM XR0.5 MG PO; +BENTYL 10 MG CA10 M1 PO; +BUDESONIDE EC3 MG PO; +CITALOPRAM HBR40 MG PO; +COREG6.25 MG PO; +ENTRESTO 24 MG1 EACH PO; +LEVOTHYROXINE112 MC1 PO
[2021-01-05 12:59] LABS: ABSOLUTE BASOPHILS 0.1 thou/uL (0.0-0.2); ABSOLUTE EOSINOPHILS 0.1 thou/uL (0.0-0.7); ABSOLUTE LYMPHOCYTES 2.3 thou/uL (0.8-5.3); ABSOLUTE MONOCYTES 0.6 thou/uL (0.0-1.2); ABSOLUTE NEUTROPHILS 2.8 thou/uL (1.6-8.1); BASOPHILS 0.9 %; EOSINOPHILS 1.9 %; HEMATOCRIT 36.3 % (37.0-47.0); HEMOGLOBIN 12.2 gm/dL (12.0-15.0); LYMPHOCYTES 39.1 %; MCHC 33.5 g/dL (28.0-37.0); MCV 101.4 fL (80.0-100.0); MONOCYTES 9.9 %; MPV 7.3 fl. (7.2-11.1); NUCLEATED RBCS 0 /100WBC; PLATELET COUNT* 216 thou/uL (150-400); POLYS 48.2 %; RBC 3.58 mil/uL (4.20-5.00); RDW-CV 16.2 % (10.5-14.5); WBC 5.8 thou/uL (4.0-11.0)
--- NOTE | 2021-01-05 13:00 | NUR ---
PT BELONGINGS INVENTORIED AND LOCKED UP BY SECURITY, PTS HOME MEDICATIONS IN PHARMACY
[2021-01-05 13:02] LABS: CALCIUM 7.6 mg/dL (8.5-10.1); CREATININE 0.8 mg/dL (0.6-1.3)
[2021-01-05 13:03] LABS: POTASSIUM 2.9 mmol/L (3.5-5.1)
[2021-01-05 13:06] LABS: ALBUMIN 2.6 g/dL (3.4-5.0); TOTAL BILIRUBIN 0.6 mg/dL (<0.1-1.0); TOTAL PROTEIN 5.5 g/dL (6.4-8.2)
[2021-01-05 13:53] LABS: ACETAMINOPHEN < 2 ug/mL (10-30); ALCOHOL 125 mg/dL (<10); SALICYLATE < 2.8 mg/dL (2.8-20.0)
[2021-01-05 14:29] LABS: URINE BILIRUBIN NEGATIVE (Negative); URINE BLOOD NEGATIVE (Negative); URINE CLARITY CLEAR; URINE COLOR YELLOW; URINE GLUCOSE-RANDOM NEGATIVE (Negative); URINE KETONES NEGATIVE (Negative); URINE LEUKOCYTES-REFLEX NEGATIVE (Negative); URINE NITRITE-REFLEX NEGATIVE (Negative); URINE PROTEIN NEGATIVE (Negative); URINE SPECIFIC GRAVITY <= 1.005 (1.005-1.030); URINE UROBILINOGEN 0.2 E.U./dl (0.2-1.0)
[2021-01-05 14:36] LABS: AMP/METHAMP Negative (Negative); BARBITURATES Negative (Negative); BENZODIAZEPINES Negative (Negative); COCAINE Negative (Negative); METHADONE Negative (Negative); OPIATES Negative (Negative); PCP Negative (Negative); THC Negative (Negative)
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
--- NOTE | 2021-01-05 15:22 | EKG ---
[place] [address] ELECTROCARDIOGRAM REPORT Name: GERRIGER REAGAN Room: [place] [address] ADM IN .R.#: [id number] Admission: 01/05/21 Attend Phys: Kendy Quarles, Discharge: Date of : 67 Date of Service: 01/05/21 1234 Report #: [id number] THIS REPORT FOR: //name// [facility] ED Test Date: 2021-01-05 Test Time: 12:34:13 Pat Name: GER ALONZO Department: Room: [facility] Gender: F Copying Machine Mechanic: SHELLEY : 1965 Requested By: Vaughn Cyr Order Number: [id number] MD: Bayron Garcia Measurements Intervals [place] Rate: 69 P: 67 [place]: 160 QRS: 35 QRSD: 100 T: 60 QT: 450 QTc: 482 Interpretive Statements Sinus rhythm Multiple ventricular premature complexes Borderline low voltage, extremity leads Borderline prolonged QT interval Compared to ECG 12/03/2020 04:14:27 Possible ischemia no longer present Electronically Signed On 01-05-2021 15:22:33 CDT by Bayron Garcia [email or web address] <ELECTRONICALLY SIGNED> By: Bayron Garcia MD, [facility] 01/05/21 1522 1234 1234 Bayron Garcia MD, [facility] /EPI
[2021-01-05] MEDS ORDERED: COREG6.25 MG PO (16:01)
--- NOTE | 2021-01-05 18:50 | NUR ---
PT TO ROOM ICU 3 THIS AFTERNOON. A&OX4. CALM AND COOPERATIVE. DENIES SI.SITTER AT BS FOR SAFETY. NSR ON MONITOR. ASYMPTOMATIC LOW BP. TOLERATING PO WELL
[2021-01-06] VITALS: BP 97/60
[2021-01-06 01:00] VITALS: BP 108/60
[2021-01-06 02:01] VITALS: BP 114/69
[2021-01-06 03:01] VITALS: BP 128/86
[2021-01-06 04:05] LABS: HEMATOCRIT 31.6 % (37.0-47.0); HEMOGLOBIN 10.7 gm/dL (12.0-15.0); MCH 34.5 pg (26.0-34.0); MCHC 33.8 g/dL (28.0-37.0); MCV 101.9 fL (80.0-100.0); MPV 7.2 fl. (7.2-11.1); RBC 3.1 mil/uL (4.20-5.00); RDW-CV 16.4 % (10.5-14.5); WBC 5.5 thou/uL (4.0-11.0)
[2021-01-06 04:19] LABS: ALBUMIN 2.5 g/dL (3.4-5.0); CALCIUM 7.3 mg/dL (8.5-10.1); CREATININE 0.8 mg/dL (0.6-1.3); MAGNESIUM 1.7 mg/dL (1.8-2.4); TOTAL BILIRUBIN 0.7 mg/dL (<0.1-1.0)
[2021-01-06 04:29] LABS: POTASSIUM 4.5 mmol/L (3.5-5.1)
--- NOTE | 2021-01-06 06:45 | NUR ---
RECEIVED REPORT AND ASSUMED CARE AT 1900. VSS. ICU MONITORING IN PLACE. 1:1 SITTER FOR SAFETY. PT DENIES COMPLAINTS OF PAIN, ONLY ANXIETY. PRN MEDICATION PER ORDERS. ASSESSMENT COMPLETED CHARTED. DISCUSSED PLAN OF CARE. NO ACUTE CHANGES ON THIS SHIFT. ROUNDING COMPLETED AND ALL NEEDS MET.
[2021-01-06 12:18] VITALS: BP 108/74
--- NOTE | 2021-01-06 17:54 | NUR ---
SPOKW WITH DR. PARK ABOUT TELEPSYCH RESULT. INSTRUCTED THAT PT IS TO REMAIN ON CURRENT PSYCH HOLD AND PT WILL BE REASSESSED BY TELEPSYCH AGAIN IN THE AM. SITTER REMAIN IN ROOM. WILL CONTINUE TO ASSESS.
[2021-01-06 20:00] VITALS: BP 137/79
[2021-01-07] VITALS (7 sets, daily range): BP systolic 116–151; BP diastolic 73–104
[2021-01-07 04:18] LABS: HEMATOCRIT 35.4 % (37.0-47.0); HEMOGLOBIN 11.8 gm/dL (12.0-15.0); MCH 33.8 pg (26.0-34.0); MCHC 33.2 g/dL (28.0-37.0); MCV 101.8 fL (80.0-100.0); MPV 7.8 fl. (7.2-11.1); RBC 3.48 mil/uL (4.20-5.00); RDW-CV 16.7 % (10.5-14.5); WBC 4.8 thou/uL (4.0-11.0)
[2021-01-07 04:35] LABS: ALBUMIN 2.5 g/dL (3.4-5.0); CALCIUM 8.2 mg/dL (8.5-10.1); CREATININE 0.9 mg/dL (0.6-1.3); MAGNESIUM 2.1 mg/dL (1.8-2.4); POTASSIUM 3.9 mmol/L (3.5-5.1); TOTAL BILIRUBIN 0.6 mg/dL (<0.1-1.0); TOTAL PROTEIN 5.6 g/dL (6.4-8.2)
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
--- NOTE | 2021-01-07 10:53 | NUR ---
PT HAD REVALUATION BY TELEPSYCH AND IN WILL NEED INPT PSYCH AY THIS TIME. MILL DRESSER INFORMED. SITTER REMAINS 1:1 AT BEDSIDE. WILL CONTINUE TO ASSESS
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
--- NOTE | 2021-01-08 03:07 | NUR ---
SPOKE WITH INTAKE NURSE OF [place] IN [facility]; REQUESTING REPEAT LABS TO VERIFY MEDICALLY STABLE; ORDER RECEIVED; WILL FAX RESULTS TO [phone]
[2021-01-08 03:55] LABS: ABSOLUTE BASOPHILS 0.1 thou/uL (0.0-0.2); ABSOLUTE EOSINOPHILS 0.1 thou/uL (0.0-0.7); ABSOLUTE LYMPHOCYTES 2.2 thou/uL (0.8-5.3); ABSOLUTE MONOCYTES 0.5 thou/uL (0.0-1.2); ABSOLUTE NEUTROPHILS 2.4 thou/uL (1.6-8.1); BASOPHILS 1.3 %; EOSINOPHILS 1.5 %; HEMATOCRIT 32.2 % (37.0-47.0); HEMOGLOBIN 10.9 gm/dL (12.0-15.0); LYMPHOCYTES 42.6 %; MCH 34.9 pg (26.0-34.0); MCHC 33.9 g/dL (28.0-37.0); MCV 103.1 fL (80.0-100.0); MONOCYTES 8.8 %; MPV 7.7 fl. (7.2-11.1); NUCLEATED RBCS 0 /100WBC; PLATELET COUNT* 183 thou/uL (150-400); POLYS 45.8 %; RBC 3.12 mil/uL (4.20-5.00); RDW-CV 16.4 % (10.5-14.5); WBC 5.2 thou/uL (4.0-11.0)
[2021-01-08 04:04] LABS: CALCIUM 8.2 mg/dL (8.5-10.1); POTASSIUM 4.4 mmol/L (3.5-5.1)
--- NOTE | 2021-01-08 06:51 | NUR ---
ASSUMED CARE OF PT AFTER REPORT AT 1930. PT A&OX4. VSS. PHYSICAL ASSESSMENT COMPLETED AND CHARTED. PT ON RA. PT ON MEDSURG STATUS. [facility]. PT COMPLAINED OF HEADACHE-MED GIVEN PER NOV.
[2021-01-08 08:00] VITALS: BP 145/89
[2021-01-08] MEDS ORDERED: GABAPENTIN 100100 MG PO (08:34)
[2021-01-08] MEDS ORDERED: WELLBUTRIN SR150 MG PO (08:34)
[2021-01-08] MEDS ORDERED: LORAZEPAM 1 MG T1 MG PO (08:34)
--- NOTE | 2021-01-08 13:16 | NUR ---
VS CHARTED, MED SURG STATUS, A&OX4- ANXIOUS, 1:1 SITTER, TRANSFERRED TO [facility], TRANSPORTED BY EMS, REPORT CALLED TO DELMI VELEZ AT RECEIVING FACILITY, HOURLY ROUNDING PERFORMED, HOME MED AND CLOTHES GIVEN TO SENIOR DESIGN ENGINEERING SPECIALIST, PACKET ALSO GIVEN TO EMS
--- NOTE | 2021-01-08 13:39 | NUR ---
CM INFORMED BY HOUSE SUPERVISIOR OF ACCEPTING INPT PSYCH FACILITY OF [facility]. [facility] REQUESTING PT'S COMPLETED PAPERWORK FAXED TO THEM. CM FAXED THE REQUESTED PAPERWORK. CM ARRANGED PT'S TRANSPORT TO [facility] WITH [facility]. CM PROVIDED RN IN-CHARGE OF PT CONTACT INFO FOR NURSE TO NURSE REPORT. PT REQUEST THAT CM CONTACT HER BROTHER AGUSTIN TO INFORM OF TRANSFER AND NEED TO BRING HER CLOTHING TO THE FACILITY. CM CALLED, BUT NO ANSWER AND CM LEFT A VOICEMAIL WITH THE REQUEST. CM WILL REMAIN AVAILABLE TO ASSIST AND FOLLOW NEEDED. [facility] [place] PHONE: [phone] [facility] FAX: [phone]
== END 2021-01-08 12:35 | DRG 918 ==
LOC: M.ERS 12:26 → M.TBA-ER 13:04 → M.2W 13:04 → M.ICU 13:04 → M.2W 01-06 10:48
PROVIDERS: Emergency Medicine; ADMIT Internal Medicine; ATTEND Internal Medicine
DX: T44.7X2A Poisoning by beta-adrenoreceptor antagonists, intentional self-harm, initial encounter (principal); E44.0 Moderate protein-calorie malnutrition; R45.851 Suicidal ideations; I50.22 Chronic systolic (congestive) heart failure; I42.9 Cardiomyopathy, unspecified; I11.0 Hypertensive heart disease with heart failure; F32.9 Major depressive disorder, single episode, unspecified; I95.9 Hypotension, unspecified; F41.9 Anxiety disorder, unspecified; Z20.822 Contact with and (suspected) exposure to COVID-19; Z79.899 Other long term (current) drug therapy; Y92.89 Other specified places as the place of occurrence of the external cause; Z68.20 Body mass index [BMI] 20.0-20.9, adult

== ENCOUNTER 2021-03-06 14:43 | Emergency (ER) | payer OTHER ==
[~2021-03-06] VITALS: Ht 167.6 cm; Wt 55.8 kg
[~2021-03-06 14:43] MED LIST changes: +GABAPENTIN 100100 MG PO; +LORAZEPAM 1 MG T1 MG PO; +WELLBUTRIN SR150 MG PO
[2021-03-06] MEDS ORDERED: NAPROSYN500 MG PO (16:15)
[2021-03-06 16:32] VITALS: BP 118/82
== END 2021-03-06 16:32 | disposition home or self-care (01) ==
LOC: M.ERS 14:43
DX: S93.491A Sprain of other ligament of right ankle, initial encounter (principal); S93.691A Other sprain of right foot, initial encounter; I10 Essential (primary) hypertension; F17.210 Nicotine dependence, cigarettes, uncomplicated; W01.0XXA Fall on same level from slipping, tripping and stumbling without subsequent striking against object, initial encounter; Y93.89 Activity, other specified; Y92.89 Other specified places as the place of occurrence of the external cause; Y99.8 Other external cause status

== ENCOUNTER 2021-04-25 12:38 | Emergency (ER) | payer OTHER ==
[~2021-04-25] VITALS: Ht 170.2 cm; Wt 56.2 kg
[~2021-04-25 12:38] MED LIST changes: +NAPROSYN500 MG PO
[2021-04-25 14:04] LABS: ABSOLUTE BASOPHILS 0.1 thou/uL (0.0-0.2); ABSOLUTE EOSINOPHILS 0.1 thou/uL (0.0-0.7); ABSOLUTE LYMPHOCYTES 1.6 thou/uL (0.8-5.3); ABSOLUTE MONOCYTES 0.5 thou/uL (0.0-1.2); ABSOLUTE NEUTROPHILS 2.2 thou/uL (1.6-8.1); BASOPHILS 1.5 %; EOSINOPHILS 1.2 %; HEMATOCRIT 32.5 % (37.0-47.0); HEMOGLOBIN 11.4 gm/dL (12.0-15.0); LYMPHOCYTES 35.4 %; MCH 33.4 pg (26.0-34.0); MCHC 35.2 g/dL (28.0-37.0); MCV 94.9 fL (80.0-100.0); MPV 7.5 fl. (7.2-11.1); NUCLEATED RBCS 0 /100WBC; PLATELET COUNT* 267 thou/uL (150-400); POLYS 49.9 %; RBC 3.42 mil/uL (4.20-5.00); RDW-CV 16.7 % (10.5-14.5); WBC 4.5 thou/uL (4.0-11.0)
[2021-04-25 14:05] LABS: ANION GAP 7 mmol/L (7-16); BUN 8 mg/dL (7-18); CHLORIDE 101 mmol/L (98-107); CO2 27 mmol/L (21-32); GLUCOSE 124 mg/dL (70-99); POTASSIUM 4.5 mmol/L (3.5-5.1); SODIUM 135 mmol/L (136-145)
[2021-04-25 14:19] LABS: ALBUMIN 3.1 g/dL (3.4-5.0); ALKALINE PHOSPHATASE 280 U/L (46-116); CK-MB MASS < 0.5 ng/mL (<0.5-3.6); LIPASE 72 U/L (73-393); NT-PRO BRAIN NAT PEPTIDE 304 pg/mL (<300); SGPT 72 U/L (30-65); TOTAL BILIRUBIN 1.5 mg/dL (<0.1-1.0); TOTAL PROTEIN 5.9 g/dL (6.4-8.2)
[2021-04-25 14:41] LABS: SGOT 233 U/L (15-37)
--- NOTE | 2021-04-25 14:49 | EKG ---
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: [facility] : 1965 Requested By: Ge Ceballos Order Number: [id number] MD: Bayron Garcia Measurements Intervals [place] Rate: 97 P: 73 [place]: 158 QRS: 21 QRSD: 92 T: 70 QT: 345 QTc: 439 Interpretive Statements Sinus rhythm Low voltage, extremity leads Nonspecific T abnormalities, anterior leads Baseline wander in lead(s) I,III,aVL Compared to ECG 01/05/2021 12:34:13 T-wave abnormality now present Ventricular premature complex(es) no longer present Electronically Signed On 04-25-2021 14:49:10 CDT by Bayron Garcia [email or web address] <ELECTRONICALLY SIGNED> By: Bayron Garcia MD, FAC 04/25/21 1449 1242 1242 Bayron Garcia MD, [facility]AC /EPI
[2021-04-25 14:58] VITALS: BP 107/75
== END 2021-04-25 14:58 | disposition home or self-care (01) ==
LOC: M.ERS 12:38
PROVIDERS: Family Medicine
DX: R07.89 Other chest pain (principal); R42 Dizziness and giddiness; R11.2 Nausea with vomiting, unspecified